=== PATIENT | female | born 1945 | race Caucasian/White ===

== ENCOUNTER → 2017-06-17 09:19 | Outpatient (CLI) | payer OTHER, SELFPAY ==
[2017-06-17 13:28] LABS: Anion Gap 11 (5-15); BUN 18 mg/dL (7-18); BUN/Creat Ratio 17.8 RATIO (10-20); Calcium,Total 9.3 mg/dL (8.5-10.1); Chloride 101 mmol/L (98-107); Cholesterol 193 mg/dL (200); Creatinine, Serum 1.01 mg/dL (0.55-1.02); EST Glomerular Filtration Rate 58 mL/min (>60); Est Glom Filt Rate - Afr Amer 70 mL/min (>60); Glucose 80 mg/dL (74-106); High Density Lipoprotein 71 mg/dL; Potassium 4.1 mmol/L (3.5-5.1); Sodium Level 137 mmol/L (136-145); Triglycerides 141 mg/dL; Very Low Density Lipoprotein 28 mg/dL (5-40)
[2017-06-18 11:37] LABS: Vitamin D,25 Hydroxy 40.5 ng/mL (19.95-100.01)
== END ==
PROVIDERS: Family Provider Family Medicine; PCP Family Medicine; Visit Provider Family Medicine
DX: I10 Essential (primary) hypertension (principal); E55.9 Vitamin D deficiency, unspecified
CPT/HCPCS: 36415; 80048; 80061; 82306

== ENCOUNTER → 2017-11-19 11:41 | Outpatient (CLI) | payer MEDICARE, SELFPAY ==
--- NOTE | 2017-11-19 11:50 | RAD_ITS ---
STUDY: X-RAY - LEFT HAND, ATTENTION FIFTH FINGER REASON FOR EXAM: Female, 72 years old. Pain following injury. TECHNIQUE: 3 view(s) of the finger were obtained. COMPARISON: None. FINDINGS: Normal metacarpal head. Normal metacarpophalangeal joint. Normal proximal phalanx. Normal middle phalanx. Nondisplaced fracture along the dorsal aspect of the base of the distal phalanx of the fifth digit with overlying soft tissue swelling. Normal proximal interphalangeal joint. Normal distal interphalangeal joint. RAD/Finger(s) Min 2 Views IMPRESSION: Nondisplaced avulsion type fracture along the dorsal aspect of the base of the distal phalanx of the fifth Electronically Signed: Jim Quinonez MD at 12:33 EDT Tel [phone], Service support ,
== END ==
PROVIDERS: Family Provider Family Medicine; PCP Family Medicine; Visit Provider Family Medicine
DX: S69.90XA Unspecified injury of unspecified wrist, hand and finger(s), initial encounter (principal)
CPT/HCPCS: 73140

== ENCOUNTER → 2017-12-15 09:45 | Outpatient (CLI) | payer MEDICARE, SELFPAY ==
[2017-12-15 12:36] LABS: Anion Gap 9 (5-15); BUN 16 mg/dL (7-18); BUN/Creat Ratio 13.8 RATIO (10-20); Calcium,Total 9.1 mg/dL (8.5-10.1); Chloride 106 mmol/L (98-107); Creatinine, Serum 1.16 mg/dL (0.55-1.02); EST Glomerular Filtration Rate 49 mL/min (>60); Est Glom Filt Rate - Afr Amer 59 mL/min (>60); Glucose 91 mg/dL (74-106); Potassium 4.1 mmol/L (3.5-5.1); Sodium Level 141 mmol/L (136-145)
== END ==
PROVIDERS: Family Provider Family Medicine; PCP Family Medicine; Visit Provider Family Medicine
DX: I10 Essential (primary) hypertension (principal)
CPT/HCPCS: 36415; 80048

== ENCOUNTER → 2018-06-15 10:22 | Outpatient (CLI) | payer MEDICARE, SELFPAY ==
[2018-06-15 12:34] LABS: Vitamin D,25 Hydroxy 53.2 ng/mL (29.95-100.01)
[2018-06-15 12:36] LABS: Anion Gap 8 (5-15); BUN 20 mg/dL (7-18); BUN/Creat Ratio 19.8 RATIO (10-20); Calcium,Total 9.4 mg/dL (8.5-10.1); Chloride 105 mmol/L (98-107); Cholesterol 202 mg/dL (200); Creatinine, Serum 1.01 mg/dL (0.55-1.02); EST Glomerular Filtration Rate 58 mL/min (>60); Est Glom Filt Rate - Afr Amer 70 mL/min (>60); Glucose 91 mg/dL (74-106); High Density Lipoprotein 72 mg/dL; Potassium 4.2 mmol/L (3.5-5.1); Sodium Level 139 mmol/L (136-145); Thyroid Stim Hormone (TSH) 1.93 uIU/mL (0.358-3.74); Triglycerides 129 mg/dL; Very Low Density Lipoprotein 26 mg/dL (5-40)
[2018-06-18 06:08] LABS: Alternaria alternata <0.10 kU/L (Class 0); Aspergillus fumigatus <0.10 kU/L (Class 0); Bahia Grass <0.10 kU/L (Class 0); Bermuda Grass <0.10 kU/L (Class 0); Bluegrass, Kentucky <0.10 kU/L (Class 0); Cat Hair/Dander, Standard <0.10 kU/L (Class 0); Cedar, Mountain <0.10 kU/L (Class 0); Cladosporium herbarum <0.10 kU/L (Class 0); Cockroach, American <0.10 kU/L (Class 0); D farinae Mite <0.10 kU/L (Class 0); D pteronyssinus <0.10 kU/L (Class 0); Dog Epithelia <0.10 kU/L (Class 0); Elm, American White <0.10 kU/L (Class 0); Hazelnut Tree <0.10 kU/L (Class 0); Hickory, White <0.10 kU/L (Class 0); Johnson Grass <0.10 kU/L (Class 0); Maple/Box Elder <0.10 kU/L (Class 0); Mucor racemosus <0.10 kU/L (Class 0); Mugwort <0.10 kU/L (Class 0); Mulberry, White <0.10 kU/L (Class 0); Oak, White <0.10 kU/L (Class 0); Penicillium chrysogen <0.10 kU/L (Class 0); Pigweed, Rough <0.10 kU/L (Class 0); Plantain, English <0.10 kU/L (Class 0); Ragweed, Short/Common <0.10 kU/L (Class 0); Sheep Sorrel(Dock) <0.10 kU/L (Class 0); Stemphylium herbarum <0.10 kU/L (Class 0); Sweet Gum <0.10 kU/L (Class 0); Sycamore, American <0.10 kU/L (Class 0)
[2018-06-18 11:08] LABS: Nettle <0.10 kU/L (Class 0)
== END ==
PROVIDERS: Family Provider Family Medicine; PCP Family Medicine; Visit Provider Family Medicine
DX: Z00.00 Encounter for general adult medical examination without abnormal findings (principal); E55.9 Vitamin D deficiency, unspecified; T78.40XA Allergy, unspecified, initial encounter
CPT/HCPCS: 36415; 80048; 80061; 82306; 84443; 86003

== ENCOUNTER → 2019-10-16 15:01 | Outpatient (CLI) | payer MEDICARE, SELFPAY ==
[2019-10-16 17:57] LABS: Anion Gap 9 (5-15); BUN 20 mg/dL (7-18); BUN/Creat Ratio 17.9 RATIO (10-20); Calcium,Total 9.7 mg/dL (8.5-10.1); Chloride 104 mmol/L (98-107); Cholesterol 196 mg/dL (200); Creatinine, Serum 1.12 mg/dL (0.55-1.02); EST Glomerular Filtration Rate 51 mL/min (>60); Est Glom Filt Rate - Afr Amer 62 mL/min (>60); Glucose 94 mg/dL (74-106); High Density Lipoprotein 61 mg/dL; Potassium 3.6 mmol/L (3.5-5.1); Sodium Level 140 mmol/L (136-145); Triglycerides 166 mg/dL; Very Low Density Lipoprotein 33 mg/dL (5-40)
[2019-10-17 09:14] LABS: Vitamin D,25 Hydroxy 71.4 ng/mL
== END ==
PROVIDERS: PCP Family Medicine; Visit Provider Family Medicine
DX: Z00.00 Encounter for general adult medical examination without abnormal findings (principal); E55.9 Vitamin D deficiency, unspecified
CPT/HCPCS: 36415; 80048; 80061; 82306

== ENCOUNTER → 2020-07-04 10:07 | Outpatient (CLI) | payer MEDICARE, SELFPAY ==
[2020-07-04 12:38] LABS: Anion Gap 7 (5-15); BUN 20 mg/dL (7-18); BUN/Creat Ratio 18.7 RATIO (10-20); Calcium,Total 9.3 mg/dL (8.5-10.1); Chloride 104 mmol/L (98-107); Cholesterol 204 mg/dL (200); Creatinine, Serum 1.07 mg/dL (0.55-1.02); EST Glomerular Filtration Rate 54 mL/min (>60); Est Glom Filt Rate - Afr Amer 65 mL/min (>60); Glucose 99 mg/dL (74-106); High Density Lipoprotein 74 mg/dL; Potassium 3.7 mmol/L (3.5-5.1); Sodium Level 138 mmol/L (136-145); Triglycerides 143 mg/dL; Very Low Density Lipoprotein 29 mg/dL (5-40)
== END ==
PROVIDERS: PCP Family Medicine; Referring Provider Family Medicine; Visit Provider Family Medicine
DX: I10 Essential (primary) hypertension (principal)
CPT/HCPCS: 36415; 80048; 80061

== ENCOUNTER → 2020-11-06 08:43 | Outpatient (CLI) | payer MEDICARE, SELFPAY ==
--- NOTE | 2020-11-06 08:55 | BD_ITS ---
STUDY: DUAL ENERGY X-RAY ABSORPTIOMETRY / DXA REASON FOR EXAM: Female, 75 years old. Z780. The patient is postmenopausal. Loss of height. TECHNIQUE: Bone Mineral Density (BMD) measurements of lumbar spine and bilateral hips were obtained. COMPARISON: None. FINDINGS: Lumbar Spine (L1-L4): g/cm2 (1.301) / T-score (1.0) / Z-score (2.7) Findings are suggestive of normal bone density with a low fracture risk. Left Femur Total: g/cm2 (0.977) / T-score (-0.2) / Z-score (1.4) Left Femoral Neck: g/cm2 (0.915) / T-score (-0.9) / Z-score (0.9) Right Femur Total: g/cm2 (0.965) / T-score (-0.3) / Z-score (1.3) Right Femoral Neck: g/cm2 (0.952) / T-score (-0.6) / Z-score (1.2) BD/Dexa Bone Density Study IMPRESSION: The patient is considered normal as outlined below according to World Wil[employer] Organization (WHO) criteria with a low fracture risk. Reference Information: The T-score is the number of standard deviations above or below the standard which is normal for young adults at their peak bone mineral density. The World Health Organization (WHO) interprets the T-scores as follows: Above -1 Normal bone density Between -1 and -2.5 Osteopenia Equal to / or below -2.5 Osteoporosis As a practical clinical guideline, osteopenia may be graded as follows: Mild -1 through -1.5 Moderate -1.6 through -2.0 Severe -2.1 through -2.4 The Z-score is the number of standard deviations above or below age-matched controls. A Z-score of less than -1.5 would be considered abnormal. References: 1. NIH Osteoporosis and Related Bone Diseases www osteo.org 2. International Society for Clinical Densitometry www iscd.org 3. National Osteoporosis Foundation www nof.org Electronically Signed: Jim Quinonez MD at 12:53 EDT , Service support ,
== END ==
PROVIDERS: PCP Family Medicine; Referring Provider Family Medicine; Visit Provider Family Medicine
DX: Z78.0 Asymptomatic menopausal state (principal)
CPT/HCPCS: 77080

== ENCOUNTER → 2021-04-21 09:51 | Outpatient (CLI) | payer MEDICARE, SELFPAY ==
[2021-04-21 13:06] LABS: Anion Gap 7 (5-15); BUN 21 mg/dL (7-18); BUN/Creat Ratio 19.1 RATIO (10-20); Calcium,Total 9.8 mg/dL (8.5-10.1); Chloride 104 mmol/L (98-107); Cholesterol 194 mg/dL (200); EST Glomerular Filtration Rate 52 mL/min (>60); Est Glom Filt Rate - Afr Amer 63 mL/min (>60); Glucose 103 mg/dL (74-106); High Density Lipoprotein 67 mg/dL; Potassium 4.2 mmol/L (3.5-5.1); Sodium Level 138 mmol/L (136-145); Triglycerides 159 mg/dL; Very Low Density Lipoprotein 32 mg/dL (5-40)
== END ==
PROVIDERS: PCP Family Medicine; Visit Provider Family Medicine
DX: I10 Essential (primary) hypertension (principal)
CPT/HCPCS: 36415; 80048; 80061

== ENCOUNTER 2021-05-12 08:49 | Outpatient (CLI) | payer MEDICARE, SELFPAY ==
--- NOTE | 2021-05-12 08:55 | US_ITS ---
STUDY: ULTRASOUND BREAST - LEFT REASON FOR EXAM: Female, 75 years old. Left axillary pain. TECHNIQUE: Axial and longitudinal images of the LEFT breast were performed with a high resolution ultrasound transducer. # OF IMAGES: 29 COMPARISON: Comparison is made with prior mammogram done earlier in the day. FINDINGS: LEFT Breast: The left axillary region was examined by ultrasound. No sonographic abnormality is seen. US/Breast Limited Unilateral IMPRESSION: No sonographic abnormality is seen. ASSESSMENT CATEGORY: BIRADS Category 1: Negative. A letter regarding these results will be sent to the patient by the facility within 30 days. Electronically Signed: Jim Quinonez MD at 10:51 EST , Service support ,
--- NOTE | 2021-05-12 08:55 | BI_ITS ---
MAMMOGRAPHY - BILATERAL DIAGNOSTIC REASON FOR EXAM: Female, 75 years old. Left axillary swelling/pain. Recent Covid booster. PERTINENT HISTORY: Non-contributory. TECHNIQUE: Digital bilateral breast tyler (3D mammographic acquisition) in the CC and MLO projections. 2-D mediolateral oblique (MLO) and craniocaudad (CC) views of both breasts were obtained. CAD: Full Field Digital Mammography with Computer Added Detection was performed. COMPARISON: Comparison is made with prior outside examination dated 05/08/2020. FINDINGS: Breast Composition: The breasts are almost entirely fatty. There are no dominant masses or suspicious calcifications. No other significant abnormalities are identified. There has been no significant change since the prior study. BI/DIAG MAMM W/CAD, BILAT IMPRESSION: Stable bilateral diagnostic mammogram. One year follow-up recommended. (A) ASSESSMENT CATEGORY: BIRADS Category 1: Negative. A letter regarding these results will be sent to the patient by the facility within 30 days. Approximately 10% of breast cancers are not detected by mammography. A normal mammogram should not delay biopsy of a clinically suspicious abnormality. Electronically Signed: Jim Quinonez MD at 10:10 EST , Service support ,
== END 2021-05-12 23:59 | disposition short-term general hospital (02) ==
LOC: OPBI 08:52
PROVIDERS: PCP Family Medicine; Referring Provider Nurse Practitioner Family; Visit Provider Nurse Practitioner Family
DX: N63.20 Unspecified lump in the left breast, unspecified quadrant (principal); R92.8 Other abnormal and inconclusive findings on diagnostic imaging of breast
CPT/HCPCS: 76642; 77062; 77066; G0279

== ENCOUNTER → 2021-10-20 | Outpatient (CLI) | payer MEDICARE, SELFPAY ==
[2021-10-20 15:56] LABS: Anion Gap 6 (5-15); BUN 17 mg/dL (7-18); BUN/Creat Ratio 14.9 RATIO (10-20); Calcium,Total 9.7 mg/dL (8.5-10.1); Chloride 103 mmol/L (98-107); Cholesterol 205 mg/dL (200); Creatinine, Serum 1.14 mg/dL (0.55-1.02); EST Glomerular Filtration Rate 50 mL/min (>60); Est Glom Filt Rate - Afr Amer 60 mL/min (>60); Glucose 101 mg/dL (74-106); High Density Lipoprotein 62 mg/dL; Potassium 3.6 mmol/L (3.5-5.1); Sodium Level 138 mmol/L (136-145); Triglycerides 175 mg/dL; Very Low Density Lipoprotein 35 mg/dL (5-40)
== END | disposition home or self-care (01) ==
LOC: MFPLAB 11:16
PROVIDERS: PCP Family Medicine; Visit Provider Family Medicine
DX: Z00.00 Encounter for general adult medical examination without abnormal findings (principal); E78.00 Pure hypercholesterolemia, unspecified
CPT/HCPCS: 36415; 80048; 80061

== ENCOUNTER → 2021-11-24 | Outpatient (CLI) | payer MEDICARE, SELFPAY ==
[2021-11-24 17:40] LABS: D-Dimer Quantitative (DVT/PE) 0.42 FEU/ug/m (0.27-0.49)
== END | disposition home or self-care (01) ==
LOC: MFPLAB 16:35
PROVIDERS: PCP Family Medicine; Visit Provider Family Medicine
DX: R07.9 Chest pain, unspecified (principal)
CPT/HCPCS: 36415; 85379

== ENCOUNTER → 2022-02-17 | Outpatient (CLI) | payer MEDICARE, SELFPAY ==
--- NOTE | 2022-02-17 11:25 | RAD_ITS ---
STUDY: X-RAY - UNILATERAL RIBS ( LEFT ) REASON FOR EXAM: Female, 76 years old. Left rib pain. TECHNIQUE: 4 view(s) of the ribs. COMPARISON: None. FINDINGS: Generalized osteopenia. Normal visualized ribs without a demonstrated fracture. Cholecystectomy clips. The visualized lung is clear and expanded. RAD/Ribs Unil 2V No CXR IMPRESSION: Generalized osteopenia with no displaced rib fracture identified. Electronically Signed: Henok Segura, at 12:00 EDT ,
== END | disposition home or self-care (01) ==
PROVIDERS: PCP Family Medicine; Referring Provider Nurse Practitioner Family; Visit Provider Nurse Practitioner Family
DX: R07.81 Pleurodynia (principal)
CPT/HCPCS: 71100

== ENCOUNTER → 2022-06-19 | Outpatient (CLI) | payer MEDICARE, SELFPAY ==
[2022-06-19 17:44] LABS: Absolute Lymphocyte Count 2.08 X10^3/uL (0.83-4.51); Absolute Neutrophil Count 4.2 X10^3/uL (2.0-7.7); Basophil# 0.07 X10^3/uL; Eosinophil# 0.12 X10^3/uL; Eosinophils% 1.7 % (0-5); Hematocrit 38.9 % (37-47); Hemoglobin 13.2 g/dL (12.0-15.0); Lymphocyte # 2.08 X10^3/ul (0.83-4.51); Mean Corp Hgb Conc 33.9 g/dL (32-36); Mean Corpuscular Hgb 30.7 pg (27.0-32.0); Mean Corpuscular Volume 90.5 fL (81-99); Mean Platelet Vol. 9.8 fl (6.2-12.0); Monocyte# 0.47 X10^3/uL; Monocyte% 6.8 % (0-10); NRBC Flagged by Analyzer 0 % (0-5); Neutrophil # 4.18 X10^3/uL (2.7-7.7); Neutrophil % 60.2 % (47-70); Platelet Count 329 K/mm3 (150-450); RBC Distribution Width CV 11.8 % (11.6-14.6); RBC Distribution Width SD 38.9 fl (35.1-43.9); White Blood Count 6.9 K/mm3 (4.4-11.0)
[2022-06-19 18:17] LABS: Anion Gap 9 (5-15); BUN 22 mg/dL (7-18); BUN/Creat Ratio 19.3 RATIO (10-20); Calcium,Total 9.3 mg/dL (8.5-10.1); Chloride 102 mmol/L (98-107); Creatinine, Serum 1.14 mg/dL (0.55-1.02); EST Glomerular Filtration Rate 49 mL/min (>60); Est Glom Filt Rate - Afr Amer 60 mL/min (>60); Glucose 94 mg/dL (74-106); Potassium 3.5 mmol/L (3.5-5.1); Sodium Level 137 mmol/L (136-145)
== END | disposition home or self-care (01) ==
PROVIDERS: PCP Family Medicine; Referring Provider Family Medicine; Visit Provider Family Medicine
DX: I10 Essential (primary) hypertension (principal); L65.9 Nonscarring hair loss, unspecified
CPT/HCPCS: 36415; 80048; 84443; 85025

== ENCOUNTER → 2022-06-29 | Outpatient (CLI) | payer MEDICARE, SELFPAY ==
--- NOTE | 2022-06-29 07:47 | BI_ITS ---
MAMMOGRAPHY - BILATERAL SCREENING REASON FOR EXAM: Female, 76 years old. Routine annual screening examination. PERTINENT HISTORY: Non-contributory. TECHNIQUE: Digital bilateral breast anum (3D mammographic acquisition) in the CC and MLO projections. 2-D mediolateral oblique (MLO) and craniocaudad (CC) views of both breasts were obtained. CAD: Full Field Digital Mammography with Computer Added Detection was performed. COMPARISON: Comparison is made with prior study dated 05/12/2021. FINDINGS: Breast Composition: The breasts are almost entirely fatty. There are no dominant masses or suspicious calcifications. No other significant abnormalities are identified. There has been no significant change since the prior study. BI/SCRN MAMM (CAD)W/ANUM BILAT IMPRESSION: Stable bilateral screening mammogram. Yearly follow-up mammogram recommended. (A) ASSESSMENT CATEGORY: BIRADS Category 1: Negative. A letter regarding these results will be sent to the patient by the facility within 30 days. Approximately 10% of breast cancers are not detected by mammography. A normal mammogram should not delay biopsy of a clinically suspicious abnormality. [id number] Electronically Signed: Jim Quinonez MD at 12:58 EST ,
== END | disposition home or self-care (01) ==
PROVIDERS: PCP Family Medicine; Referring Provider Family Medicine; Visit Provider Family Medicine
DX: Z12.31 Encounter for screening mammogram for malignant neoplasm of breast (principal)
CPT/HCPCS: 77063; 77067

== ENCOUNTER → 2022-07-03 | Outpatient (CLI) | payer MEDICARE, SELFPAY ==
--- NOTE | 2022-07-03 12:50 | CT_ITS ---
STUDY: CT ABDOMEN WITH CONTRAST REASON FOR EXAM: Female, 76 years old. HTN. Left upper flank pain. RADIATION DOSAGE (If Supplied By Facility): CTDIvol = ( 11.37 ) mGy, DLP = ( 476.89 ) mGycm TECHNIQUE: Transaxial images were obtained post I.V. administration of IV 100mL Isovue-300, and oral contrast. Sagittal and coronal images were reconstructed. Individualized dose optimization techniques were used for this CT. COMPARISON: None. FINDINGS: The visualized lung bases are unremarkable. The visualized portions of the heart are within normal limits. There is decreased attenuation of the liver consistent with a mild degree of fatty infiltration of the liver. Steatosis. The gallbladder is contracted. There is a 6 mm hypodensity in the central portion of the spleen. This may represent a small hemangioma. Normal pancreas. Normal bilateral adrenal glands. There is a 3.17 x 1.7 cm cyst in the posterior aspect of the right kidney in the lower pole. Normal left kidney. There is a small hiatal hernia. Normal small intestine. Normal colon. The appendix is visualized and appears normal. There is scattered atherosclerotic calcification of the abdominal aorta, without a demonstrated aneurysm. Normal inferior vena cava. Normal retroperitoneum. Normal abdominal wall. There are degenerative changes of the visualized lumbar spine. CT/Abdomen WITH IV Contrast IMPRESSION: Mild degree of fatty infiltration of the liver. Status post cholecystectomy. Small cyst in the lower pole of the right Electronically Signed: Jim Quinonez MD at 14:16 EST ,
== END | disposition home or self-care (01) ==
LOC: CT 12:49
PROVIDERS: PCP Family Medicine; Visit Provider Family Medicine
DX: R07.9 Chest pain, unspecified (principal); I10 Essential (primary) hypertension
CPT/HCPCS: 74160; Q9967

== ENCOUNTER → 2022-12-22 | Outpatient (CLI) | payer MEDICARE, SELFPAY ==
[2022-12-22 12:59] LABS: Anion Gap 8 (5-15); BUN 20 mg/dL (7-18); Calcium,Total 9.4 mg/dL (8.5-10.1); Chloride 102 mmol/L (98-107); Cholesterol 203 mg/dL (200); Creatinine, Serum 1.05 mg/dL (0.55-1.02); EST Glomerular Filtration Rate 54 mL/min (>60); Est Glom Filt Rate - Afr Amer 66 mL/min (>60); Glucose 97 mg/dL (74-106); High Density Lipoprotein 70 mg/dL; Potassium 3.8 mmol/L (3.5-5.1); Sodium Level 137 mmol/L (136-145); Triglycerides 179 mg/dL; Very Low Density Lipoprotein 36 mg/dL (5-40)
== END | disposition home or self-care (01) ==
LOC: MTLAB 09:10
PROVIDERS: PCP Family Medicine; Referring Provider Family Medicine; Visit Provider Family Medicine
DX: Z00.00 Encounter for general adult medical examination without abnormal findings (principal); I10 Essential (primary) hypertension
CPT/HCPCS: 36415; 80048; 80061

== ENCOUNTER 2023-02-25 07:04 | Day surgery (SDC) | payer MEDICARE, SELFPAY ==
[2023-02-25 07:31] VITALS: BP 152/74; PULSE 85; RESP 16; TEMP 36.7; O2SAT 99; BMI 23.8
[2023-02-25] MEDS: Lactated Ringers 1,000 ML 15 ML IV (07:46)
--- NOTE | 2023-02-25 08:28 | HP.PCM_ITS ---
HPI - General General Date of Admission: 02/25/23 Date of Service: 02/25/23 Chief Complaint: Screening colonoscopy HPI Narrative WALT MEDLEY, is a 77 F who presents for screening colonoscopy. Patient said her last colonoscopy was back in 2013 and it was normal. She denies any history of diverticular disease with diverticulitis. She says she had a normal Cologuard in 2019. Patient says that she has been having intermittent crampy left lower quadrant pain over the last month. She denies any bleeding. She also complains of some intermittent loose stools. Her weight has been stable. She is having no medicine has been she does take a probiotic. [facility] Medical History (Updated 02/23/23 @ 10:17 by Radha Montesinos) Anxiety Arthritis Depression Difficulty swallowing Hiatal hernia History of diverticulitis History of edema HTN (hypertension) Hx of colonic polyps Leg cramps Non-smoker Post-menopausal Restless legs Home Medications calcium carbonate 600 mg calcium (1,500 mg) tablet 1,200 mg PO DAILY 12/29/22 [History Last Taken Unknown] cholecalciferol (vitamin D3) 50 mcg (2,000 unit) capsule 50 mcg PO DAILY 12/29/22 [History Last Taken Unknown] duloxetine 30 mg capsule,delayed release (Cymbalta) 30 mg PO DAILY 12/29/22 [History Last Taken Unknown] hydrochlorothiazide 12.5 mg tablet 12.5 mg PO DAILY 12/29/22 [History Last Taken Unknown] lactobacillus combination no.9 4 billion cell capsule (Adult 50 Plus Probiotic) 4,000 mmu cells PO DAILY 12/29/22 [History Last Taken Unknown] loratadine 10 mg tablet (Allergy Relief (loratadine)) 10 mg PO DAILY 12/29/22 [History Last Taken Unknown] losartan 50 mg tablet 50 mg PO DAILY 12/29/22 [History Last Taken Unknown] xhxmcxzxpxhp-gcimfnyk-bixyixn-folic acid 400 mcg-vit K1 20 mcg tablet (Women's 50 Plus Advanced) 1 tab PO DAILY 12/29/22 [History Last Taken Unknown] Allergy/AdvReac Type Severity Reaction Status Date / Time amoxicillin AdvReac Nausea/Vom/ Verified 02/25/23 07:29 Diarrhea clavulanic acid AdvReac Nausea/Vom/ Verified 02/25/23 07:29 [From Augmentin] Diarrhea Surgical History (Updated 02/23/23 @ 10:17 by Radha Montesinos) History of laparoscopic appendectomy History of laparoscopic cholecystectomy History of repair of rectocele Hx of bladder repair surgery Hx of colonoscopy Social History (Updated 12/29/22 @ 10:42 by Antoinette Porter) household members: spouse current occupational status: retired Smoking Status: Never smoker alcohol intake: never substance use type: does not use ROS Review of Systems ROS Unobtainable: other Constitutional Constitutional: Denies fatigue, fever(s), poor appetite, weight gain or weight loss ENT HEENT: Denies mouth lesions Cardiovascular Cardiovascular: Denies abdominal bloating, abdominal edema or abdominal pain Respiratory/Chest Respiratory/Chest: Denies change in mental status, change in phlegm color, chest congestion or chest tightness Gastrointestinal Gastrointestinal: Denies belching, bloating, change in bowel habits, change in stool character, chewing difficulty, coffee ground emesis, constipation, cramping, diarrhea, dyspepsia, dysphagia, early satiety, excessive flatus, fecal incontinence, heartburn, hematemesis, hematochezia, hemorrhoids, loose stools, melena, nausea, odynophagia, rectal bleeding, tenesmus, vomiting or weight changes Genitourinary Genitourinary: Denies abdominal discomfort, burning urination or itching Musculoskeletal Musculoskeletal: Reports as per HPI; Denies muscle weakness or myalgias Integumentary Integumentary: Denies jaundice Neurologic Neurologic: Denies lack of coordination or weakness Psychiatric Psychiatric: Denies confusion, depression, memory loss, mood swings, paranoia or suicidal ideation Endocrine Endocrinology: Denies systems reviewed and no addt'l complaints, except as documented Hematologic/Lymphatic Hematologic/Lymphatic: Denies anemia, easy bleeding, easy bruising or lymphadenopathy Allergic/Immunologic Allergic/Immunologic: Denies systems reviewed and no addt'l complaints, except as documented Vital Signs Vital Signs Vital Signs: 02/25/23 07:31 02/25/23 07:31 Temperature 98.1 F Temperature Source Temporal Pulse Rate 85 Respiratory Rate 16 Respiratory Pattern Normal Blood Pressure 152/74 H Blood Pressure Mean 100 Blood Pressure Source Monitor Blood Pressure Position Sitting Blood Pressure Location Left Arm Pulse Ox 99 Oxygen Delivery Method Room Air Weight Weight: 134 lb 7.712 oz Body Mass Index (BMI) 23.8 Physical Exam Const alert General Appearance: cooperative Orientation / Consciousness: oriented to person HEENT hearing grossly normal bilaterally Head and Scalp: normal to inspection Face and Sinus: face symmetric Nose: external nose normal Mouth: oral and palatal mucosa normal Eyes conjunctivae normal General Eye: normal appearance of both eyes Neck full ROM General: normal visual inspection Lymph Lymphatic: no lymphadenopathy noted Chest inspection of chest normal and palpation of chest normal Chest: symmetrical chest wall rise Resp normal respiratory effort Effort and Inspection: able to speak in complete sentences Cardio regular rate GI non-distended Percussion: normal to percussion Rectal Exam: deferred Neuro Speech: speech normal Gait (Neuro): normal gait Assessment & Plan Assessment/Plan (1) Encounter for screening for malignant neoplasm of colon: PLAN: She was explained alternatives, risk, benefits including outstanding bleeding, infection, sepsis, perforation, need for emergent surgery . She will have an ASA of 3.
[2023-02-25 08:55] VITALS: BP 103/52; BP 152/74; PULSE 66; RESP 16; TEMP 37.3; O2SAT 99
--- NOTE | 2023-02-25 08:58 | OP.CCLET_ITS ---
02/25/2023 Cezar Suarez MD [address] [id number] Re : Colonoscopy procedure for Vero Saab Dear Dr. Suarez This procedure was performed on February. My impressions and recommendations are as follows: Impressions : - Diverticulosis in the recto-sigmoid colon and in the sigmoid colon. - The examination was otherwise normal. - No specimens collected. Recommendations : - Discharge patient to home. - Resume previous diet. - Continue present medications. - Repeat colonoscopy in 10 years for screening purposes. My findings are described in the full procedure note, which is enclosed. If I can be of further assistance, please feel free to contact me at . Sincerely, Wang Taylor, 02/25/2023 8:57:42 AM This report has been signed electronically.
--- NOTE | 2023-02-25 08:58 | OP.COLON_ITS ---
Patient Name: Vero Saab Procedure Date: 02/25/2023 8:29 AM Date of : 1945 Age: 77 Procedure: Colonoscopy Indications: Screening for colorectal malignant neoplasm Providers: Wang Taylor DO Referring MD: Cezar Suarez MD Medicines: Monitored Anesthesia Care Patient Profile: This is a 77 year old female. Refer to note in patient chart for documentation of history and physical. Last Colonoscopy: more than 10 years ago. Complications: No immediate complications. Procedure: Pre-Anesthesia Assessment: - Prior to the procedure, a History and Physical was performed, and patient medications and allergies were reviewed. The patient is competent. The risks and benefits of the procedure and the sedation options and risks were discussed with the patient. All questions were answered and informed consent was obtained. Patient identification and proposed procedure were verified by the physician in the pre-procedure area. Mental Status Examination: alert and oriented. Airway Examination: normal oropharyngeal airway and neck mobility. Respiratory Examination: clear to auscultation. CV Examination: normal. Prophylactic Antibiotics: The patient does not require prophylactic antibiotics. Prior Anticoagulants: The patient has taken no anticoagulant or antiplatelet agents. ASA Grade Assessment: II - A patient with mild systemic disease. After reviewing the risks and benefits, the patient was deemed in satisfactory condition to undergo the procedure. The anesthesia plan was to use monitored anesthesia care (MAC). Immediately prior to administration of medications, the patient was re-assessed for adequacy to receive sedatives. The heart rate, respiratory rate, oxygen saturations, blood pressure, adequacy of pulmonary ventilation, and response to care were monitored throughout the procedure. The physical status of the patient was re-assessed after the procedure. After I obtained informed consent, the scope was passed under direct vision. Throughout the procedure, the patient's blood pressure, pulse, and oxygen saturations were monitored continuously. The pediatric colonoscope was introduced through the anus and advanced to 10 cm into the ileum. The colonoscopy was performed without difficulty. The patient tolerated the procedure well. The quality of the bowel preparation was good. The terminal ileum, ileocecal valve, appendiceal orifice, and rectum were photographed. Scope In: 8:35:35 AM Scope Withdrawal Time 0 hours 6 minutes 59 seconds Scope Out: 8:50:00 AM Total Procedure Duration Time 0 hours 14 minutes 25 seconds Findings: The perianal and digital rectal examinations were normal. Multiple small and large-mouthed diverticula were found in the recto-sigmoid colon and sigmoid colon. The exam was otherwise without abnormality. Impression: - Diverticulosis in the recto-sigmoid colon and in the sigmoid colon. - The examination was otherwise normal. - No specimens collected. Recommendation: - Discharge patient to home. - Resume previous diet. - Continue present medications. - Repeat colonoscopy in 10 years for screening purposes. Procedure Code(s): --- Professional --- G0121, Colorectal cancer screening; colonoscopy on individual not meeting criteria for high risk CPT copyright 2021 [employer] [place] [employer]. All rights reserved. The codes documented in this report are preliminary and upon semiconductor packages leak tester review may be revised to meet current compliance requirements. Wang Taylor DO 02/25/2023 8:57:42 AM This report has been signed electronically. Number of Addenda: 0 Note Initiated On: 02/25/2023 8:29 AM
[2023-02-25 09:00] VITALS: BP 103/57; BP 152/74; PULSE 65; RESP 16; O2SAT 99
[2023-02-25 09:05] VITALS: BP 116/61; BP 152/74; PULSE 61; RESP 16; O2SAT 100
[2023-02-25 09:10] VITALS: BP 113/57; BP 152/74; PULSE 60; RESP 16; TEMP 37.2; O2SAT 100
[2023-02-25 09:31] VITALS: BP 152/74
== END 2023-02-25 09:36 | disposition home or self-care (01) ==
LOC: EN 07:05 → AC 07:07
PROVIDERS: PCP Family Medicine; Referring Provider Family Medicine; Visit Provider Internal Medicine Gastroenterology
PROC: 0DJD8ZZ Inspection of Lower Intestinal Tract, Via Natural or Artificial Opening Endoscopic (ICD-10-PCS; CPT 45378; principal; 2023-02-25 08:10)
DX: Z12.11 Encounter for screening for malignant neoplasm of colon (principal); K57.30 Diverticulosis of large intestine without perforation or abscess without bleeding; I10 Essential (primary) hypertension; Z79.899 Other long term (current) drug therapy; Z87.19 Personal history of other diseases of the digestive system; Z86.010 Personal history of colon polyps
CPT/HCPCS: G0121; J7120

== ENCOUNTER → 2023-06-21 | Outpatient (CLI) | payer MEDICARE, SELFPAY ==
--- OUTSIDE RECORDS SUMMARY | 2023-06-21 10:22 | XMS RPT_ITS | CCD ---
Author Name Unknown Address [address] [place] [address] Organization [facility] Care Team Providers Care Safety Person Name Role Phone Daniela GRIGSBY, Cezar Sterling Primary Care Provider Allergies Allergy Classification Reported Allergen(s) Allergy Type Date of Onset Reaction(s) Facility (3 sources) Seasonal allergy; Translations: [SEASONAL ALLERGIES] Allergy to substance 8 Other: See Comments [facility] Medications Completed/Discontinued Medications Medication Drug Class(es) Dates Sig (Normalized) Sig (Original) CALCIUM CARBONATE/VITAMIN D2 (CALCIUM + VITAMIN D ORAL) (2 sources) CALCIUM CARBONATE/VITAMIN D2 (CALCIUM + VITAMIN D ORAL) Take by mouth. 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] Onset: 12-09-2015 12-09-2015 Chronic Residual codes; unclassified (1 source) Other specified personal risk factors, not elsewhere classified; Translations: [Other specified personal history presenting hazards to health] Episodic Results Test Name Value Interpretation Reference Range Facil ity Vital Signs Date Time Vital Sign Value Performing Clinician Jelani litbinta 03-05-2022 18:36-0400 Body temperature 100.4 [degF] Brandi Manriquez APRN.MOTOR POOL CLERK Work Phone: [facility] 03-05-2022 18:36-0400 Body weight 64.77 kg Brandi Manriquez APRN.MOTOR POOL CLERK Work Phone: [facility] 03-05-2022 18:36-0400 Diastolic blood pressure 74 mm[Hg] Bradni Manriquez APRN.MOTOR POOL CLERK Work Phone: [facility] 03-05-2022 18:36-0400 Heart rate 103 /min Brandi Mnariquez APRN.MOTOR POOL CLERK Work Phone: [facility] 03-05-2022 18:36-0400 Respiratory rate 22 /min Brandi Manriquez APRN.MOTOR POOL CLERK Work Phone: [facility] 03-05-2022 18:36-0400 SaO2% (BldA) [Mass fraction] 98 % Brandi Manriquez APRN.MOTOR POOL CLERK Work Phone: [facility] 03-05-2022 18:36-0400 Systolic blood pressure 128 mm[Hg] Brandi Manriquez APRN.MOTOR POOL CLERK Work Phone: [facility] Encounters Encounter Date Encounter Type Care Provider Facility Start: 03-06-2022 Telephone encounter Daija judd PA-C Work Phone: [facility] Procedures Date Procedure Procedure Detail Performing Clinician Start: 05-08-2020 Mammography Brandi Manriquez APRN.MOTOR POOL CLERK Work Phone: Start: 03-22-2014 Colonoscopy Brandi Manriquez APRN.MOTOR POOL CLERK Work Phone: Plan of Treatment Date Care Activity Detail Author Start: 03-22-2024 Colonoscopy COLONOSCOPY [facility] Start: 03-22-2024 COLORECTAL CANCER SCREENING COLORECTAL CANCER SCREENING [facility] Start: 03-05-2022 End: 03-19-2022 Influenza virus A and B RNA and SARS-CoV-2 (COVID-19) N gene panel - Respiratory specimen by EMA with probe detection COVID WITH FLUA+B, ROUTINE Microbiology Routine At increased risk of exposure to COVID-19 virus Expected: 03/05/2022, Expires: 03/19/2022 [facility] Work Phone: Payers Date Payer Category Payer Medicare MMO MEDICARE MMO MEDADVANTAGE O [id number] 2018-Present [phone] [address] [place] [address] [facility] [id number] 2018 Unknown [id number] Social History Date Type Detail Facility Start: 03-05-2022 Tobacco smoking stat us NHIS Never smoked tobacco [facility] Start: 03-05-2022 Tobacco use and exposure Smoke less tobacco non-user [facility] Start: 03-05-2022 Alcohol intake Current drinke r of alcohol (finding) [facility] Start: 12-07-2019 History SDOH Alcohol Frequency 2 [facility] Start: 12-07-2019 History SDOH Alcohol Std Drinks 1 [facility] Start: 12-07-2019 History SDOH Social Connections Phone 5 [facility] Start: 12-07-2019 History SDOH Social Connections Meetings 3 [facility] Start: 12-07-2019 History SDOH Physica l Activity MPS 15 [facility] Start: 12-07-2019 History SDOH Financial 4 [facility] Start: 12-09-2015 Alcohol Comment glass of wine occasionally [facility] Start: 1945 Sex Assigned At Not on file [facility] Note 03-06-2022 Telephone Encounter - Melissa Jarrett LPN - 03/06/2022 6:17 PM EDTTelephone Encounter - Melissa Jarrett LPN - 03/06/2022 6:17 PM EDT Note Date & Type Note Facility 03-06-2022 Miscellaneous Notes Formattin g of this note might be different from the original. Patient notified and verbalized understanding of instructions given.Melissa Jarrett LPN ----- Message from Daija Strickland PA-C sent at 03/06/2022 2:07 PM EDT ----- Patient notified of positive COVID test. Please assist patient with scheduling a virtual visit with their Primary Care team or any available provider within 5 days of symptom onset to discuss eligibility for COVID treatment options. documented in this encounter [facility] Influenza virus A and B RNA and SARS-CoV-2 (COVID-19) N gene panel EMA+probe (Resp) 03-05-2022 Note Date & Type Note Facility 03-05-2022 Influenza virus A and B RNA and SARS-CoV-2 (COVID-19) N gene panel EMA+probe (Resp) COVID 19 RESULT: SARS-CoV-2 (Agent of COVID-19) Detected by RT-PCR or equivalent method. beni [id number]_[employer] (YARIEL)_EUA This test was developed and its performance characteristics determined by [facility]'s [facility] [place]. This test has been authorized by FDA under an Emergency Use Authorization (EUA). This test has been validated in accordance with the FDA's Guidance Document Policy for Diagnostics Testing in Laboratories Certified to Perform High Complexity Testing under CLIA prior to Emergency use Authorization for Coronavirus Disease 2019 during the Public Health Emergency issued on July 08, 2019. Test performed by [facility], [facility] [place], [address] [place] [address]. INFLUENZA A PCR: Negative for Influenza A by RT-PCR INFLUENZA B PCR: Negative for Influenza B by RT-PCR [facility] Progress note 03-05-2022 Note Date & Type Note Facility 03-05-2022 Note HNO ID: [id number] Author: Brandi Manriquez APRN.MOTOR POOL CLERK Service: ? Author Type: Nurse Practitioner Type: Progress Notes Filed: 03/05/2022 6:48 PM Note Text: CC: Patient presents with: Cough: Sneezing, fatigue, body aches x 3 days said they took a home test by at home test may not have been accurate. He said it was old. He said the control line took a long time to even come up. They wanted confirmation with a new test. HPI: Vero Saab is a 76 year old female who presents to the office with complaint of fatigue for a few days. Symptoms are improving Associated symptoms includes sneezing and body aches. Denies ear pain, nausea, vomiting , and diarrhea. Treatments tried include nothing so far. with no relief of symptoms. Sick contacts: unknown. History of asthma, frequent episodes of bronchitis, chronic bronchitis, bronchiectasis or COPD: No Smoker: No Seasonal/environmental allergies: No The ROS is otherwise negative. The patient's pmh, medications, allergies, and past visits are reviewed. PHYSICAL EXAM: BP 128/74 Pulse 103 Temp (!) 38 ?C (100.4 ?F) Resp 22 Wt 64.8 kg (142 lb 12.8 oz) SpO2 98% BMI 26.12 kg/m? General appearance: alert, cooperative, pleasant, in no acute distress Head: Normocephalic Eyes: EOM's intact, conjunctiva pink and moist, no icterus, sclera white, non-injected Heart: Negative. RRR without obvious murmur, gallop, or rubs. No ectopy. Lungs: clear to auscultation, without rales or wheeze, good air exchange PAST MEDICAL HISTORY Diagnosis Date Glaucoma (increased eye pressure) Hypertension PAST SURGICAL HISTORY Procedure Laterality Date APPENDECTOMY CHOLECYSTECTOMY S HYSTERECTOMY cervix/ovaries remain/robot/ant. repair ALLERGIES Seasonal Allergies MEDICATIONS hydroCHLOROthiazide (HYDRODIURIL, ESIDRIX) 12.5 mg tablet Take 12.5 mg by mouth once daily. loratadine (CLARITIN) 10 mg tablet Take 10 mg by mouth once daily. losartan (COZAAR) 25 mg tablet Cholecalciferol, Vitamin D3, 1,000 unit cap Take 1,000 Units by mouth once daily. latanoprost (XALATAN) 0.005 % ophthalmic solution 1 Drop daily at bedtime. CALCIUM CARBONATE/VITAMIN D2 (CALCIUM + VITAMIN D ORAL) Take by mouth. multivitamin tablet Take 1 tablet by mouth once daily. Cetirizine 10 mg cap Take by mouth. (Patient not taking: Reported on 03/05/2022) sertraline (ZOLOFT) 25 mg tablet Take 25 mg by mouth once daily. (Patient not taking: Reported on 03/05/2022) FAMILY HISTORY Problem Relation Age of Onset other (parkinson's) Mother Cancer Father lung Cancer Maternal Grandmother esophagus Colon Cancer Maternal Grandfather Diabetes Paternal Uncle Social History Tobacco Use Smoking status: Never Smokeless tobacco: Never Vaping Use Vaping Use: Never used Substance Use Topics Alcohol use: Yes Comment: glass of wine occasionally Drug use: No ASSESSMENT/PLAN: 1. At increased risk of exposure to COVID-19 virus - ICD9: V15.89, ICD10: Z91.89 - COVID WITH FLUA+B, ROUTINE Prescription instructions reviewed with patient as applicable. Potential red flag symptoms discussed with the patient. Reviewed appropriate action plan to take if red flag symptoms occur. Patient agreeable to treatment plan. Brandi Manriquez APRN.RICHIE [facility] History of Present illness Narrative 03-05-2022 Brandi Manriquez APRN.RICHIE - 03/05/2022 6:43 PM EDT Note Date & Type Note Facility 03-05-2022 History of Presen t illness Narrative CC: Patient presents with: Cough: Sneezing, fatigue, body aches x 3 days said they took a home test by at home test may not have been accurate. He said it was old. He said the control line took a long time to even come up. They wanted confirmation with a new test. HPI: Vero Saab is a 76 year old female who presents to the office with complaint of fatigue for a few days. Symptoms are improving Associated symptoms includes sneezing and body aches. Denies ear pain, nausea, vomiting , and diarrhea. Treatments tried include nothing so far. with no relief of symptoms. Sick contacts: unknown. History of asthma, frequent episodes of bronchitis, chronic bronchitis, bronchiectasis or COPD: No Smoker: No Seasonal/environmental allergies: No The ROS is otherwise negative. The patient's pmh, medications, allergies, and past visits are reviewed. PHYSICAL EXAM: BP 128/74 Pulse 103 Temp (!) 38 C (100.4 F) Resp 22 Wt 64.8 kg (142 lb 12.8 oz) SpO2 98% BMI 26.12 kg/m General appearance: alert, cooperative, pleasant, in no acute distress Head: Normocephalic Eyes: EOM's intact, conjunctiva pink and moist, no icterus, sclera white, non-injected Heart: Negative. RRR without obvious murmur, gallop, or rubs. No ectopy. Lungs: clear to auscultation, without rales or wheeze, good air exchange PAST MEDICAL HISTORY Diagnosis Date Glaucoma (increased eye pressure) Hypertension PAST SURGICAL HISTORY Procedure Laterality Date APPENDECTOMY CHOLECYSTECTOMY S HYSTERECTOMY cervix/ovaries remain/robot/ant. repair ALLERGIES Seasonal Allergies MEDICATIONS hydroCHLOROthiazide (HYDRODIURIL, ESIDRIX) 12.5 mg tablet Take 12.5 mg by mouth once daily. loratadine (CLARITIN) 10 mg tablet Take 10 mg by mouth once daily. losartan (COZAAR) 25 mg tablet Cholecalciferol, Vitamin D3, 1,000 unit cap Take 1,000 Units by mouth once daily. latanoprost (XALATAN) 0.005 % ophthalmic solution 1 Drop daily at bedtime. CALCIUM CARBONATE/VITAMIN D2 (CALCIUM + VITAMIN D ORAL) Take by mouth. multivitamin tablet Take 1 tablet by mouth once daily. Cetirizine 10 mg cap Take by mouth. (Patient not taking: Reported on 03/05/2022) sertraline (ZOLOFT) 25 mg tablet Take 25 mg by mouth once daily. (Patient not taking: Reported on 03/05/2022) FAMILY HISTORY Problem Relation Age of Onset other (parkinson's) Mother Cancer Father lung Cancer Maternal Grandmother esophagus Colon Cancer Maternal Grandfather Diabetes Paternal Uncle Social History Tobacco Use Smoking status: Never Smokeless tobacco: Never Vaping Use Vaping Use: Never used Substance Use Topics Alcohol use: Yes Comment: glass of wine occasionally Drug use: No ASSESSMENT/PLAN: 1. At increased risk of exposure to COVID-19 virus - ICD9: V15.89, ICD10: Z91.89 - COVID WITH FLUA+B, ROUTINE Prescription instructions reviewed with patient as applicable. Potential red flag symptoms discussed with the patient. Reviewed appropriate action plan to take if red flag symptoms occur. Patient agreeable to treatment plan. Brandi Manriquez APRN.RICHIE documented in this encounter [facility] History of Past illness Narrative 12-09-2015 Note Date & Type Note Facility documented as of this encounter (statuses as of 03/05/2022) [facility] History of Past illness Narrative 12-09-2015 Note Date & Type Note Facility documented as of this encounter (statuses as of 03/06/2022) [facility] Evaluation note Note Date & Type Note Facility documented in this encounter [facility] Health Concerns Infection Onset Date Last Indicated Resolved Time COVID-19 Rule-Out 03/05/2022 03/05/2022 Infection Onset Date Last Indicated Resolved Time COVID-19 Rule-Out 03/05/2022 03/05/2022 03/06/2022 12:15 PM EDT COVID-19 Confirmed 03/05/2022 03/05/2022 Summary Purpose Family History No Family History Records Found Advance Directives No Advanced Directives Records Found Additional Source Comments Source Comments (unrecognize d section and content) In the event this informatio n is protected by the Federal Confidentiality of Alcohol and Drug Abuse Patient Records regulations: The Federal rules restrict any use of the information to criminally investigate or prosecute any alcohol or drug abuse patient[facility] the event this information is protected by the Federal Confidentiality of Alcohol and Drug Abuse Patient Records regulations: The Federal rules restrict any use of the information to criminally investigate or prosecute any alcohol or drug abuse patient.[facility] Reason for Visit (unrecogniz ed section and content) Reason Comments Results Care Teams (unrecognized sec tion and content) Safety Person Relationship Specialty Start Date End Date Cezar Suarez MD PCP - General Family Medicine 09/03/15 INFORMATION SOURCE (unrecogn ized section and content) FOR RECORDS PERTAINING TO PATIENTS WHO ARE OR HAVE BEEN ENROLLED IN A CHEMICAL DEPENDENCY/SUBSTANCEABUSE PROGRAM, SOME INFORMATION MAY BE OMITTED. This clinical summary was aggregated from multiple sources. Caution should be exercised in using it in the provision of clinical care. This summary normalizes information from multiple sources, and as a consequence, information in this document may materially change the coding, format and clinical context of patient data. In addition, data may be omitted in some cases. CLINICAL DECISIONS SHOULD BE BASED ON THE PRIMARY CLINICAL RECORDS. [facility] [employer] [facility]. provides no warranty or guarantee of the accuracy or completeness of information in this document.
[2023-06-21 13:28] LABS: ALB/GLOB Ratio 1.2 RATIO (0.9-2.4); AST(SGOT) 18 U/L (15-37); Alanine Aminotransfer ALT/SGPT 29 U/L (13-56); Alkaline Phosphatase 87 U/L (45-117); Anion Gap 10 (5-15); BUN 17 mg/dL (7-18); BUN/Creat Ratio 15.5 RATIO (10-20); Calcium,Total 9.5 mg/dL (8.5-10.1); Chloride 103 mmol/L (98-107); Cholesterol 216 mg/dL (200); EST Glomerular Filtration Rate 51 mL/min (>60); Est Glom Filt Rate - Afr Amer 62 mL/min (>60); Globulin 3.3 g/dL (2.2-4.2); Glucose 111 mg/dL (74-106); High Density Lipoprotein 74 mg/dL; Potassium 3.7 mmol/L (3.5-5.1); Protein, Total 7.3 g/dL (6.4-8.2); Sodium Level 138 mmol/L (136-145); Triglycerides 169 mg/dL; Very Low Density Lipoprotein 34 mg/dL (5-40)
== END | disposition home or self-care (01) ==
LOC: MFPLAB 09:53
PROVIDERS: PCP Family Medicine; Visit Provider Family Medicine
DX: I10 Essential (primary) hypertension (principal)
CPT/HCPCS: 36415; 80053; 80061

== ENCOUNTER → 2023-07-15 | Outpatient (CLI) | payer MEDICARE, SELFPAY ==
--- NOTE | 2023-07-15 08:12 | BI_ITS ---
MAMMOGRAPHY - BILATERAL SCREENING 3-D TOMOSYNTHESIS REASON FOR EXAM: Female, 77 years old. SCREENING PERTINENT HISTORY: No significant family history. TECHNIQUE: 2-D mammograms and 3-D Tomosynthesis of the breast (s) were performed. CAD was performed. COMPARISON: 06/29/2022 FINDINGS: The breast composition is composed of scattered fibroglandular density. Scattered benign calcifications are seen. No dense spiculated masses or suspicious microcalcifications are identified. No architectural distortion is identified. There is no skin thickening or retraction. There has been no significant change since the prior study. BI/SCRN MAMM (CAD)W/ANUM BILAT IMPRESSION: No mammographic signs of malignancy. Routine yearly mammograms recommended. ASSESSMENT CATEGORY: BIRADS Category 1: Negative. A letter regarding these results will be sent to the patient by the facility within 30 days. FOLLOW UP RECOMMENDATION: Yearly follow up mammogram recommended. (A) Approximately 10% of breast cancers are not detected by mammography. A normal mammogram should not delay biopsy of a clinically suspicious abnormality. Electronically Signed: Hunter Davis MD at 15:15 EST ,
--- OUTSIDE RECORDS SUMMARY | 2023-07-15 08:30 | XMS RPT_ITS | CCD ---
Author Name Unknown Address [address] [place] [address] Organization [facility] Care Team Providers Care Strap Cutting Machine Operator Name Role Phone Daniela GRIGSBY, Cezar Sterling Primary Care Provider 1( [phone] Allergies Allergy Classification Reported Allergen(s) Allergy Type Date of Onset Reaction(s) Facility (3 sources) Seasonal allergy; Translations: [SEASONAL ALLERGIES] Allergy to substance 8 Other: See Comments [facility] Medications Completed/Discontinued Medications Medication Drug Class(es) Dates [...] 18:36-0400 Body temperature 100.4 [degF] Brandi Manriquez APRN.CHEMICAL BLENDER Work Phone: [facility] 03-05-2022 18:36-0400 Body weight 64.77 kg Brandi Manriquez APRN.CHEMICAL BLENDER Work Phone: [facility] 03-05-2022 18:36-0400 Diastolic blood pressure 74 mm[Hg] Brandi Manriquez APRN.CHEMICAL BLENDER Work Phone: [facility] 03-05-2022 18:36-0400 Heart rate 103 /min Brandi Manriquez APRN.CHEMICAL BLENDER Work Phone: [facility] 03-05-2022 18:36-0400 Respiratory rate 22 /min Brandi Manriquez APRN.CHEMICAL BLENDER Work Phone: [facility] 03-05-2022 18:36-0400 SaO2% (BldA) [Mass fraction] 98 % Brandi Manriquez APRN.CHEMICAL BLENDER Work Phone: [facility] 03-05-2022 18:36-0400 Systolic blood pressure 128 mm[Hg] Brandi Manriquez APRN.CHEMICAL BLENDER Work Phone: [facility] Encounters Encounter Date Encounter Type Care Provider Facility Start: 03-06-2022 Telephone encounter Daija judd PA-C Work Phone: [facility] Procedures Date Procedure Procedure Detail Performing Clinician Start: 05-08-2020 Mammography Brandi Manriquez APRN.CHEMICAL BLENDER Work Phone: Start: 03-22-2014 Colonoscopy Brandi Manriquez APRN.CHEMICAL BLENDER Work Phone: Plan of Treatment Date Care Activity Detail Author Start: 03-22-2024 Colonoscopy COLONOSCOPY [facility] Start: 03-22-2024 COLORECTAL CANCER SCREENING COLORECTAL CANCER SCREENING [facility] Start: 03-05-2022 End: 03-19-2022 Influenza virus A and B RNA and SARS-CoV-2 (COVID-19) N gene panel - Respiratory specimen by EMA with probe detection COVID WITH FLUA+B, ROUTINE Microbiology Routine At increased risk of exposure to COVID-19 virus Expected: 03/05/2022, Expires: 03/19/2022 [facility] Work Phone: Payers Date Payer Category Payer Medicare MMO MEDICARE MMO MEDADVANTAGE O [id number] 2018-Present [phone] [address] [place] [address] [facility] [id number] 2018 Unknown [id number] Social History Date Type Detail Facility Start: 03-05-2022 Tobacco smoking stat us NHIS Never smoked tobacco [facility] Start: 03-05-2022 Tobacco use and exposure Smoke less tobacco non-user [facility] Start: 03-05-2022 Alcohol intake Current drinke r of alcohol (finding) [facility] Start: 12-07-2019 History SDOH Alcohol Frequency 2 [facility] Start: 12-07-2019 History SDOH Alcohol Std Drinks 1 [facility] Start: 12-07-2019 History SDOH Social Connections Phone 5 [facility] Start: 12-07-2019 History SDOH Social Connections Meetings 3 [facility] Start: 12-07-2019 History SDOH Physica l Activity MPS 15 [facility] Start: 12-07-2019 History SDOH Financial 4 [facility] Start: 12-09-2015 Alcohol Comment glass of wine occasionally [facility] Start: 1945 Sex Assigned At Not on file C [facility] Note 03-06-2022 Telephone Encounter - [...] COVID treatment options. documented in this encounter [facility] Influenza virus A and B RNA and SARS-CoV-2 (COVID-19) N gene panel EMA+probe (Resp) 03-05-2022 Note Date & Type Note Facility 03-05-2022 Influenza virus A and B RNA and SARS-CoV-2 (COVID-19) N gene panel EMA+probe (Resp) COVID 19 RESULT: SARS-CoV-2 (Agent of COVID-19) Detected by RT-PCR or equivalent method. beni [id number]_[employer] (YARIEL)_EUA This test was developed and its performance characteristics determined by [facility]'s [facility] [place]. This test has been authorized by FDA under an Emergency Use Authorization (EUA). This test has been validated in accordance with the FDA's Guidance Document Policy for Diagnostics Testing in Laboratories Certified to Perform High Complexity Testing under CLIA prior to Emergency use Authorization for Coronavirus Disease 2019 during the Public Health Emergency issued on July 08, 2019. Test performed by [facility], [facility] [place], [address] [place] [address]. INFLUENZA A PCR: Negative for Influenza A by RT-PCR INFLUENZA B PCR: Negative for Influenza B by RT-PCR [facility] Progress note 03-05-2022 Note Date & Type Note Facility 03-05-2022 Note HNO ID: [id number] Author: Brandi Manriquez APRN.CHEMICAL BLENDER Service: ? Author Type: Nurse Practitioner Type: [...] agreeable to treatment plan. Brandi Manriquez APRN.RICHIE [facility] History of Present illness Narrative 03-05-2022 Brandi [...] Brandi Manriquez APRN.RICHIE documented in this encounter [facility] History of Past illness Narrative 12-09-2015 Note Date & Type Note Facility documented as of this encounter (statuses as of 03/05/2022) [facility] History of Past illness Narrative 12-09-2015 Note Date & Type Note Facility documented as of this encounter (statuses as of 03/06/2022) [facility] Evaluation note Note Date & Type Note Facility documented in this encounter [facility] Health Concerns Infection Onset Date Last Indicated [...] or prosecute any alcohol or drug abuse patient.[facility] the event this information is protected by the Federal Confidentiality of Alcohol and Drug Abuse Patient Records regulations: The Federal rules restrict any use of the information to criminally investigate or prosecute any alcohol or drug abuse patient.[facility] Reason for Visit (unrecogniz ed section and content) Reason Comments Results Care Teams (unrecognized sec tion and content) Strap Cutting Machine Operator Relationship Specialty Start Date End Date Cezar [...] BE BASED ON THE PRIMARY CLINICAL RECORDS. [facility] [employer] [facility]. provides no warranty or guarantee of the accuracy or completeness of information in this document.
== END | disposition home or self-care (01) ==
LOC: OPBI 08:11
PROVIDERS: PCP Family Medicine; Referring Provider Family Medicine; Visit Provider Family Medicine
DX: Z12.31 Encounter for screening mammogram for malignant neoplasm of breast (principal)
CPT/HCPCS: 77063; 77067

== ENCOUNTER → 2023-09-01 | Outpatient (CLI) | payer MEDICARE, SELFPAY ==
[2023-09-01 15:46] LABS: Erythrocyte Sedimentation Rate 9 mm/hr (0-30)
[2023-09-01 16:11] LABS: CRP < 2.90 mg/L (0.0-3.0)
[2023-09-03 11:09] LABS: ANTINUCLEAR ANTIBODIES DIRECT Negative (Negative)
== END | disposition home or self-care (01) ==
LOC: MFPLAB 12:05
PROVIDERS: PCP Family Medicine; Visit Provider Family Medicine
DX: M79.89 Other specified soft tissue disorders (principal)
CPT/HCPCS: 36415; 85652; 86038; 86140

== ENCOUNTER → 2023-10-15 | Outpatient (CLI) | payer MEDICARE, SELFPAY ==
--- NOTE | 2023-10-15 07:14 | CT_ITS ---
STUDY: CT BRAIN WITHOUT CONTRAST REASON FOR EXAM: Female, 78 years old. Tingling sensation RADIATION DOSAGE (If Supplied By Facility): CTDIvol = ( 44.99 ) mGy, DLP = ( 745.49 ) mGycm TECHNIQUE: Transaxial CT imaging of the brain was performed without administration of intravenous contrast material. Individualized dose optimization techniques were used for this CT. COMPARISON: No relevant prior comparison study available FINDINGS: PARENCHYMA: There is no acute bleed or infarct. There are chronic ischemic and atrophic changes. VENTRICLES: There is no hydrocephalus. MASTOID AIR CELLS AND PARANASAL SINUSES: The visualized paranasal sinuses are clear. The mastoid air cells are clear. BONES: There is no skull fracture. SOFT TISSUES: The visualized soft tissues are within normal limits. CT/Brain/Head without Contrast IMPRESSION: No acute intracranial abnormality. Chronic ischemic and atrophic changes. Electronically Signed: Stefano Ortiz MD at 8:10 EDT ,
== END | disposition home or self-care (01) ==
PROVIDERS: PCP Family Medicine; Referring Provider Family Medicine; Visit Provider Family Medicine
DX: R20.2 Paresthesia of skin (principal)
CPT/HCPCS: 70450

== ENCOUNTER → 2023-12-17 | Outpatient (CLI) | payer MEDICARE, SELFPAY ==
[2023-12-17 13:11] LABS: Follicle Stimulating Hormone 82.6 mIU/mL; Luteinizing Hormone 31.4 mIU/mL
[2023-12-23 21:07] LABS: Estrogen, Total, Serum 50 pg/mL (40-244)
== END | disposition home or self-care (01) ==
LOC: MFPLAB 10:15
PROVIDERS: PCP Family Medicine; Visit Provider Registered Nurse
DX: R23.2 Flushing (principal)
CPT/HCPCS: 36415; 82672; 83001; 83002

== ENCOUNTER → 2024-02-10 | Outpatient (CLI) | payer MEDICARE, SELFPAY ==
--- NOTE | 2024-02-10 08:46 | BD_ITS ---
STUDY: DUAL ENERGY X-RAY ABSORPTIOMETRY / DXA REASON FOR EXAM: Female, 78 years old. [id number] TECHNIQUE: Bone Mineral Density (BMD) measurements of lumbar spine and bilateral hips were obtained. COMPARISON: Comparison is made with prior study dated November 06, 2020. FINDINGS: Lumbar Spine (L1-L4): g/cm2 (1.077) / T-score (0.3) / Z-score (2.7) Findings are suggestive of normal bone density with a low fracture risk. Left Femur Total: g/cm2 (0.830) / T-score (-0.9) / Z-score (0.9) Left Femoral Neck: g/cm2 (0.707) / T-score (-1.3) / Z-score (0.9) Right Femur Total: g/cm2 (0.858) / T-score (-0.7) / Z-score (1.2) Right Femoral Neck: g/cm2 (0.739) / T-score (-1.0) / Z-score (1.1) The T-Scores on the most recent prior examination were: Lumbar Spine (L1-L4): There has been worsening of bone density since the previous examination. Left Femur Total: which represents a worsening of 8.9%. Right Femur Total: which represents a worsening of 4.6%. BD/Dexa Bone Density Study IMPRESSION: The patient is considered osteopenic as outlined below according to World Wil[employer] Organization (WHO) criteria with a low fracture risk. There has been worsening of bone density since the previous examination. Reference Information: The T-score is the number of standard deviations above or below the standard which is normal for young adults at their peak bone mineral density. The World Health Organization (WHO) interprets the T-scores as follows: Above -1 Normal bone density Between -1 and -2.5 Osteopenia Equal to / or below -2.5 Osteoporosis As a practical clinical guideline, osteopenia may be graded as follows: Mild -1 through -1.5 Moderate -1.6 through -2.0 Severe -2.1 through -2.4 The Z-score is the number of standard deviations above or below age-matched controls. A Z-score of less than -1.5 would be considered abnormal. References: 1. NIH Osteoporosis and Related Bone Diseases www osteo.org 2. International Society for Clinical Densitometry www iscd.org 3. National Osteoporosis Foundation www nof.org Electronically Signed: Jim Quinonez MD at 12:38 EDT ,
== END | disposition home or self-care (01) ==
LOC: OPBD 08:45
PROVIDERS: PCP Family Medicine; Referring Provider Family Medicine; Visit Provider Family Medicine
DX: Z00.00 Encounter for general adult medical examination without abnormal findings (principal); Z78.0 Asymptomatic menopausal state
CPT/HCPCS: 77080

== ENCOUNTER → 2024-03-29 | Outpatient (CLI) | payer MEDICARE, SELFPAY ==
[2024-03-29 12:43] LABS: ALB/GLOB Ratio 1.3 RATIO (0.9-2.4); AST(SGOT) 21 U/L (15-37); Alanine Aminotransfer ALT/SGPT 24 U/L (13-56); Albumin, Serum 4.1 g/dL (3.2-5.0); Alkaline Phosphatase 87 U/L (45-117); Anion Gap 7 (5-15); BUN 23 mg/dL (7-18); BUN/Creat Ratio 22.1 RATIO (10-20); Calcium,Total 9.5 mg/dL (8.5-10.1); Chloride 103 mmol/L (98-107); Cholesterol 210 mg/dL (200); Creatinine, Serum 1.04 mg/dL (0.55-1.02); EST Glomerular Filtration Rate 55 mL/min (>60); Est Glom Filt Rate - Afr Amer 66 mL/min (>60); Globulin 3.1 g/dL (2.2-4.2); Glucose 103 mg/dL (74-106); High Density Lipoprotein 81 mg/dL; Potassium 3.8 mmol/L (3.5-5.1); Protein, Total 7.2 g/dL (6.4-8.2); Sodium Level 136 mmol/L (136-145); Triglycerides 122 mg/dL; Very Low Density Lipoprotein 24 mg/dL (5-40)
== END | disposition home or self-care (01) ==
LOC: MFPLAB 10:02
PROVIDERS: PCP Family Medicine; Visit Provider Family Medicine
DX: I10 Essential (primary) hypertension (principal)
CPT/HCPCS: 36415; 80053; 80061

== ENCOUNTER → 2024-07-21 | Outpatient (CLI) | payer MEDICARE, SELFPAY ==
--- NOTE | 2024-07-21 10:15 | BI_ITS ---
PROCEDURE: SCRN MAMM (CAD)W/ANUM BILAT REASON FOR EXAM: F, Age 78 y/o, presents for annual screening mammogram. No family history of breast cancer. TECHNIQUE: Bilateral screening digital breast tomosynthesis with 2D and 3D images. Computer aided detection. COMPARISON: 07/15/2023, 06/29/2022 FINDINGS: The breasts are almost entirely fatty. There is a focal asymmetry with associated architectural distortion in the central outer left breast at anterior depth, which has progressively increased in size when compared to examination of 2022. No suspicious masses, areas of developing architectural distortion, or suspicious calcifications in the right breast. BI/SCRN MAMM (CAD)W/ANUM BILAT IMPRESSION: Focal asymmetry with associated architectural distortion in the central outer l eft breast at anterior depth requires further evaluation. Recommend diagnostic mammogram and ultrasound of the left breast. BI-RADS 0: INCOMPLETE - NEED ADDITIONAL IMAGING EVALUATION. Follow-up code: Additional Views obtained/call backs The patient will be notified of the results by letter. Reading Location: [id number]
== END | disposition home or self-care (01) ==
LOC: OPBI 10:17
PROVIDERS: PCP Family Medicine; Referring Provider Family Medicine; Visit Provider Family Medicine
DX: Z12.31 Encounter for screening mammogram for malignant neoplasm of breast (principal)
CPT/HCPCS: 77063; 77067

== ENCOUNTER → 2024-07-26 | Outpatient (CLI) | payer MEDICARE, SELFPAY ==
--- NOTE | 2024-07-26 09:30 | BI_ITS ---
PROCEDURE: DIAG MAMM W/CAD, UNILAT; BREAST LIMITED UNILATERAL; LT BRST UNILAT ANUM ADD ON REASON FOR EXAM: 78-year-old female presents for recall from screening for a focal asymmetry in the left breast. No family history of breast cancer. TECHNIQUE: Bilateral screening digital breast tomosynthesis with 2D and 3D images. Computer aided detection. COMPARISON: 07/21/2024, 07/15/2023, 06/29/2022 FINDINGS: MAMMOGRAM: The breasts are almost entirely fatty. The focal asymmetry in the upper-outer left breast at anterior depth effaces and likely represents benign overlapping fibroglandular tissues. ULTRASOUND: Ultrasound performed of the upper-outer left breast demonstrates no sonographic correlate. There are no suspicious sonographic findings. BI/Lt Brst Unilat Anum Add On IMPRESSION: The focal asymmetry likely represents benign overlapping fibroglandular tissues . There is no evidence of malignancy in the left breast. BI-RADS 2: BENIGN. RECOMMEND ANNUAL MAMMOGRAPHIC SCREENING. Follow-up code: Routine Follow-up The patient will be notified of the results by letter. Reading Location: [id number]
--- NOTE | 2024-07-26 09:30 | BI_ITS ---
PROCEDURE: DIAG MAMM W/CAD, UNILAT; BREAST LIMITED UNILATERAL; LT BRST UNILAT ANUM ADD ON REASON FOR EXAM: 78-year-old female presents for recall from screening for a focal asymmetry in the left breast. No family history of breast cancer. TECHNIQUE: Bilateral screening digital breast tomosynthesis with 2D and 3D images. Computer aided detection. COMPARISON: 07/21/2024, 07/15/2023, 06/29/2022 FINDINGS: MAMMOGRAM: The breasts are almost entirely fatty. The focal asymmetry in the upper-outer left breast at anterior depth effaces and likely represents benign overlapping fibroglandular tissues. ULTRASOUND: Ultrasound performed of the upper-outer left breast demonstrates no sonographic correlate. There are no suspicious sonographic findings. BI/DIAG MAMM W/CAD, UNILAT IMPRESSION: The focal asymmetry likely represents benign overlapping fibroglandular tissues . There is no evidence of malignancy in the left breast. BI-RADS 2: BENIGN. RECOMMEND ANNUAL MAMMOGRAPHIC SCREENING. Follow-up code: Routine Follow-up The patient will be notified of the results by letter. Reading Location: [id number]
== END | disposition home or self-care (01) ==
PROVIDERS: PCP Family Medicine; Referring Provider Family Medicine; Visit Provider Family Medicine
DX: N64.89 Other specified disorders of breast (principal)
CPT/HCPCS: 76642; 77061; 77065; G0279

== ENCOUNTER → 2024-09-29 | Outpatient (CLI) | payer MEDICARE, SELFPAY ==
[2024-09-29 12:47] LABS: ALB/GLOB Ratio 1.7 RATIO (0.9-2.4); AST(SGOT) 22 U/L (<=31); Alanine Aminotransfer ALT/SGPT 18 U/L (<=34); Albumin, Serum 4.5 g/dL (3.4-4.8); Alkaline Phosphatase 85 U/L (35-104); Anion Gap 13 (5-15); BUN 18 mg/dL (4-19); BUN/Creat Ratio 17.9 RATIO (10-20); Calcium,Total 10.4 mg/dL (7.6-11.0); Carbon Dioxide 24.1 mmol/L (21.0-32.0); Chloride 101 mmol/L (98-108); Cholesterol 205 mg/dL (<=200); Creatinine, Serum 1.02 mg/dL (0.70-1.20); EST Glomerular Filtration Rate 57 (>60); Globulin 2.6 g/dL (2.2-4.2); Glucose 99 mg/dL (70-99); High Density Lipoprotein 69 mg/dL; Low Density Lipoprotein Calc. 103 mg/dL; Potassium 4.1 mmol/L (3.3-5.1); Protein, Total 7.1 g/dL (5.9-8.4); Sodium Level 138 mmol/L (133-145); Total Bilirubin 0.38 mg/dL (0.00-1.30); Triglycerides 164 mg/dL; Very Low Density Lipoprotein 33 mg/dL (5-40); cholesterol:hdl ratio screen 2.97
== END | disposition home or self-care (01) ==
LOC: MFPLAB 09:58
PROVIDERS: PCP Family Medicine; Referring Provider Family Medicine; Visit Provider Family Medicine
DX: I10 Essential (primary) hypertension (principal); M79.604 Pain in right leg
CPT/HCPCS: 36415; 80053; 80061; 93971

== ENCOUNTER → 2024-09-29 | Outpatient (CLI) | payer MEDICARE, SELFPAY ==
--- NOTE | 2024-09-29 13:59 | VDLE_ITS ---
Reason For Study Reason For Study: RLE PAin RIGHT LEFT GSV is normal. FV is compressible, spontaneous, phasic, competent CFV is compressible, spontaneous, phasic, competent and demonstrates normal augmentation. and demonstrates normal augmentation. FV is compressible, spontaneous, phasic, competent and demonstrates normal augmentation. POP V is compressible, spontaneous, phasic, competent and demonstrates normal augmentation. T/P Trunk is compressible. PTV is compressible. RT PerV is compressible. Procedure This is a venous duplex using B-mode, color flow and spectral Doppler. Exam performed in department. The exam was diagnostic. A preliminary report was called and/or faxed to Dr. Suarez ([facility]). VL/Venous Duplex US, Unilateral Interpretation Summary Deep veins of the right lower extremity are patent and compressible segmentally . There is no evidence of right lower extremity deep vein thrombosis. Valvular competence appears intact within the p roximal deep venous system on the right . The right great saphenous vein appears patent and compressible segmentally. The left femoral vein is patent and compressible. Ordering Physician: Cezar Suarez Referring Physician: Cezar Suraez Performed By: Butch Brizuela, DEBBIE
== END | disposition home or self-care (01) ==
LOC: CVS 13:58
PROVIDERS: PCP Family Medicine; Referring Provider Family Medicine; Visit Provider Family Medicine
DX: M79.604 Pain in right leg (principal)
CPT/HCPCS: 93971

== ENCOUNTER → 2025-03-26 | Outpatient (CLI) | payer MEDICARE, SELFPAY ==
[2025-03-26 13:34] LABS: Cholesterol 216 mg/dL (<=200); Low Density Lipoprotein Calc. 108 mg/dL; Triglycerides 223 mg/dL; Very Low Density Lipoprotein 45 mg/dL (5-40); cholesterol:hdl ratio screen 3.09
[2025-03-26 14:03] LABS: AST(SGOT) 20 U/L (<=31); Alanine Aminotransfer ALT/SGPT 16 U/L (<=34); Albumin, Serum 4.5 g/dL (3.4-4.8); Alkaline Phosphatase 81 U/L (35-104); Anion Gap 14 (5-15); BUN 18 mg/dL (4-19); BUN/Creat Ratio 17.5 RATIO (10-20); Calcium,Total 10.6 mg/dL (7.6-11.0); Carbon Dioxide 25.3 mmol/L (21.0-32.0); Chloride 100 mmol/L (98-108); Globulin 2.6 g/dL (2.2-4.2); Glucose 95 mg/dL (70-99); Potassium 4.5 mmol/L (3.3-5.1)
== END | disposition home or self-care (01) ==
LOC: MFPLAB 09:51
PROVIDERS: PCP Family Medicine; Visit Provider Family Medicine
DX: I10 Essential (primary) hypertension (principal)
CPT/HCPCS: 36415; 80053; 80061